=== PATIENT | male | born 1995 | race Caucasian/White ===

== ENCOUNTER → 2019-06-15 | Outpatient (CLI) | payer SELFPAY ==
[2016-11-17 19:33] VITALS: BMI 20.3
[~2019-06-15] MED LIST: MULT-893 PO
--- NOTE | 2019-06-15 20:37 | RADIOLOGY IMAGING REPORT ---
[place] [facility] [place] NAME: Dhaval Enriquez : 1995 MR: [id number] V: [id number] EXAM DATE: ORDERING PHYSICIAN: CHRIS WHITING TECHNOLOGIST: Location: [facility] Patient: Dhaval Enriquez : 1995 Visit/Account:[id number] Date of Sevice: 06/15/2019 FOOT 3 VIEW LEFT Indication: Left foot pain and tenderness. Comparison: None Available Findings: 3 views of the left foot were obtained. No fracture or dislocation. No bony lesions, degenerative changes or periosteal abnormality. Soft tis sues are unremarkable. IMPRESSION: 1.No acute osseous abnormality of the left foot Report Dictated By: Edilberto Brown at 06/15/2019 8:26 PM Report E-Signed By: Edilberto Brown at 06/15/2019 8:28 PM WSN:[id number]
== END ==
LOC: RAD 19:57
PROVIDERS: ATTEND Family Medicine
DX: M79.672 Pain in left foot (principal)